=== PATIENT | female | born 1950 | race Caucasian/White ===

== ENCOUNTER 2016-11-02 13:08 | Observation (INO) | payer OTHER ==
[2016-11-02] MEDS ORDERED: NS 1,000 ML IV ONE (13:25)
--- NOTE | 2016-11-02 13:25 | EDPHY ---
H & P Stated Complaint: 2 episodes over last 2 days of aphasia /blurrred vision/now resolved Time Seen by Provider: 11/02/16 13:19 HPI/ROS: CHIEF COMPLAINT: 2 episodes of expressive aphasia, blurry vision HISTORY OF PRESENT ILLNESS: The patient is referred to the ED after she experienced 2 episodes of an expressive aphasia over the past 72 hours. The patient reports she has been asymptomatic for the past 24 hours. The duration of her symptoms was approximately 5 minutes. In addition to the a facial she experienced some generalized complaints of blurry vision. She had no history of headache with the symptoms. The patient denies any peripheral numbness or weakness. The patient has no prior history of stroke or TIA. The patient has no history of hypertension, hyperlipidemia, arrhythmia or cardiac disease. The patient denies additional symptoms of infection. She specifically denies fever , cough or dysuria. REVIEW OF SYSTEMS: A comprehensive 10 point review of systems is otherwise negative aside from elements mentioned in the history of present illness. Source: Patient - Personal History Current Tetanus/Diphtheria Vaccine: Yes Tetanus Vaccine Date: >10 YRS - Medical/Surgical History Hx Asthma: No Hx Chronic Respiratory Disease: No Hx Diabetes: No Hx Cardiac Disease: No Hx Renal Disease: No Hx Cirrhosis: No Hx Alcoholism: No Hx HIV/AIDS: No Hx Splenectomy or Spleen Trauma: No Other PMH: denies - Social History Smoking Status: Never smoked - Physical Exam Exam: General Appearance: Alert, no distress Eyes: Pupils equal and round no pallor or injection ENT, Mouth: Mucous membranes moist Respiratory: There are no retractions, lungs are clear to auscultation Cardiovascular: Regular rate and rhythm Gastrointestinal: Abdomen is soft and nontender, no masses, bowel sounds normal Neurological: A&O, normal motor function, normal sensory exam, normal cranial nerves Skin: Warm and dry, no rashes Musculoskeletal: Neck is supple nontender Extremities: symmetrical, full range of motion Constitutional: Initial Vital Signs Temperature (C) 36.7 C 11/02/16 13:14 Heart Rate 60 11/02/16 13:14 Respiratory Rate 16 11/02/16 13:14 Blood Pressure 122/73 H 11/02/16 13:14 O2 Sat (%) 97 11/02/16 13:14 O2 Delivery Mode Room Air Allergies/Adverse Reactions: Penicillins Allergy (Verified 11/02/16 16:47) SWELLING,ITCHING Home Medications: Medication Instructions Recorded NK [No Known Home Meds] 11/02/16 Medical Decision Making - Diagnostics EKG Interpretation: EKG: Complete interpretation has been separately recorded in the [facility] archive. Summary impression: Sinus rhythm, rate 57 Imaging: MRI of the Brain (Without Contrast) November 02, 2016 Clinical Indication: Rule out CVA. Difficulty with word finding. Blurred vision. Findings: Moderate volume periventricular white matter microvascular ischemic gliosis is present bilaterally, largest lesion present in the subcortical left parietal white matter. No evidence of acute cortical ischemia on diffusion-weighted imaging. No evidence of mass or mass effect or intracranial hemorrhage. Craniocervical junction appears unremarkable. Skull base appears normal. Carotid and vertebrobasilar flow voids are present. Impression: Moderate volume white matter microvascular ischemic gliosis, without acute cortical ischemia. CT Neck CT Angiography of the Neck (With Contrast) November 02, 2016 Clinical Indications: Expressive aphasia. TIA symptoms. Findings: The right-sided aortic arch is high riding in the superior mediastinum resulting in mild buckling of the arch and origin of the right common carotid artery. The buckling and minimal compression of the origin of the right common carotid artery between the aortic arch and posterior head of the right clavicle results in 40 to 50% narrowing. The four-vessel neck anatomy is otherwise normal and widely patent. Minimal calcified plaque along the posterior wall of the left carotid bulb and trace calcified along the medial right carotid bulb results in less than 10% narrowing bilaterally. No ulcerated plaque or flow-limiting stenosis of the carotid bulb or internal carotid arteries. Bilateral vertebral arteries are widely patent. Impressions 1. Right-sided aortic arch. 2. Mild to moderate (40 to 50% stenosis) origin of the right common carotid artery due to minimal compression and kinking at its origin. 2. Trace bilateral carotid plaque. No flow-limiting stenosis secondary to plaque. ED Course/Re-evaluation: The patient presents to the ED after several discrete episodes of acute neurologic complaints including a facial and vision changes. The patient is asymptomatic in the emergency department with an NIH stroke scale of 0. She is not a candidate for thrombolytics therapy as she is entirely asymptomatic. Workup was undertaken for evaluation of possible TIA. This included a MRI of the brain which demonstrates microvascular disease without evidence of an acute stroke. She had a CT angiogram of the brain which was unremarkable. CT angiogram of the neck demonstrated no evidence of stenosis or dissection. There appeared to a "kink" of the origin of the left ICA near the aortic arch. The patient will be admitted to the hospital for further observation workup of TIA this evening. Consultation was made with Dr. Hanny Zhao who will admit the patient. Differential Diagnosis: Differential diagnosis considered includes stroke, TIA, metabolic abnormality, migraine variant, seizure - Data Points Laboratory Results: Laboratory Results 11/02/16 13:55 11/02/16 13:55 11/02/16 13:55 WBC 6.04 10^3/uL (3.80-9.50) RBC 4.83 10^6/uL (4.18-5.33) Hgb 14.5 g/dL (12.6-16.3) Hct 42.9 % (38.0-47.0) MCV 88.8 fL (81.5-99.8) MCH 30.0 pg (27.9-34.1) MCHC 33.8 g/dL (32.4-36.7) RDW 13.9 % (11.5-15.2) Plt Count 200 10^3/uL (150-400) MPV 11.2 fL (8.7-11.7) Neut % (Auto) 56.8 % (39.3-74.2) Lymph % (Auto) 33.6 % (15.0-45.0) [place] % (Auto) 6.1 % (4.5-13.0) Eos % (Auto) 2.6 % (0.6-7.6) Baso % (Auto) 0.7 % (0.3-1.7) Nucleat RBC Rel Count 0.0 % (0.0-0.2) Absolute Neuts (auto) 3.43 10^3/uL (1.70-6.50) Absolute Lymphs (auto) 2.03 10^3/uL (1.00-3.00) Absolute Monos (auto) 0.37 10^3/uL (0.30-0.80) Absolute Eos (auto) 0.16 10^3/uL (0.03-0.40) Absolute Basos (auto) 0.04 10^3/uL (0.02-0.10) Absolute Nucleated RBC 0.00 10^3/uL (0-0.01) Immature Gran % 0.2 % (0.0-1.1) Immature Gran # 0.01 10^3/uL (0.00-0.10) PT 12.3 SEC (12.0-15.0) INR 0.92 (0.83-1.16) Sodium 142 mEq/L (134-144) Potassium 4.0 mEq/L (3.5-5.2) Chloride 103 mEq/L (97-110) Carbon Dioxide 27 mEq/l (22-31) Anion Gap 12 mEq/L (8-16) BUN 9 mg/dL (7-23) Creatinine 0.7 mg/dL (0.6-1.0) Estimated GFR > 60 Glucose 89 mg/dL (70-100) Calcium 9.3 mg/dL (8.5-10.4) Medications Given: Discontinued Medications Sodium Chloride (Ns) 1,000 mls @ 0 mls/hr IV ONCE ONE PRN Reason: Wide Open Stop: 11/02/16 13:26 Last Admin: 11/02/16 14:07 Dose: 1,000 mls Departure - Departure Disposition: [facility] Inpatient Acute Clinical Impression: TIA (transient ischemic attack) Condition: Good
[2016-11-02 14:02] LABS: % IMMATURE GRANULYOCYTES 0.2 % (0.0-1.1); ABSOLUTE IMMATURE GRANULOCYTES 0.01 10^3/uL (0.00-0.10); ADD DIFF? NO; ADD MORPH? NO; ADD SCAN? NO; ATYPICAL LYMPHOCYTE FLAG 10 (0-99); FRAGMENT RBC FLAG 0 (0-99); HEMATOCRIT 42.9 % (38.0-47.0); HEMOGLOBIN 14.5 g/dL (12.6-16.3); LEFT SHIFT FLG 0 (0-99); LIPEMIA HEMOLYSIS FLAG 90 (0-99); MEAN CELL HEMOGLOBIN CONCENTR. 33.8 g/dL (32.4-36.7); MEAN CELL VOLUME 88.8 fL (81.5-99.8); MEAN PLATELET VOLUME 11.2 fL (8.7-11.7); PLATELET CLUMPS FLAG 10 (0-99); PLATELET COUNT 200 10^3/uL (150-400); RED BLOOD CELL COUNT 4.83 10^6/uL (4.18-5.33); RED CELL DISTRIBUTION WIDTH 13.9 % (11.5-15.2)
--- NOTE | 2016-11-02 14:25 | CPEKG ---
Heart Rate: 57 RR Interval: 1053 P-R Interval: 180 QRSD Interval: 76 QT Interval: 420 QTC Interval: 409 P [place]: 7 QRS [place]: 29 T Wave [place]: 26 EKG Severity - NORMAL ECG - EKG Impression: SINUS RHYTHM Electronically Signed By: Angella Shrestha 02-Nov-2016 15:04:33
[2016-11-02 14:27] LABS: ANION GAP 12 mEq/L (8-16); CALCIUM 9.3 mg/dL (8.5-10.4); CARBON DIOXIDE 27 mEq/l (22-31); CHLORIDE 103 mEq/L (97-110); CREATININE 0.7 mg/dL (0.6-1.0); GLOMERULAR FILTRATION RATE > 60; GLUCOSE 89 mg/dL (70-100); SODIUM 142 mEq/L (134-144)
[2016-11-02 14:30] LABS: INR 0.92 (0.83-1.16); PROTIME(PATIENT) 12.3 SEC (12.0-15.0)
[2016-11-02] MEDS ORDERED: IOPAMIDOL (ISOVUE 370) 75 ML BTL IV ONE (15:38)
--- NOTE | 2016-11-02 16:23 | MR ---
MRI of the Brain (Without Contrast) November 02, 2016 Clinical Indication: Rule out CVA. Difficulty with word finding. Blurred vision. Technique: T1-weighted images were acquired axially and sagittally from the foramen magnum to the ve rtex. Axial FLAIR, fast T2-weighted, and diffusion-weighted axial images were obtained without contr ast. Findings: Moderate volume periventricular white matter microvascular ischemic gliosis is present sole aterally, largest lesion present in the subcortical left parietal white matter. No evidence of acute cortical ischemia on diffusion-weighted imaging. No evidence of mass or mass effect or intracranial h emorrhage. Craniocervical junction appears unremarkable. Skull base appears normal. Carotid and verte brobasilar flow voids are present. Impression: Moderate volume white matter microvascular ischemic gliosis, without acute cortical isc hemia. Results called to Dr. Santy Prakash at 1600 hours.
--- NOTE | 2016-11-02 16:44 | CT ---
CT Angiography of the Head November 02, 2016 Clinical Indications: Expressive aphasia. TIA symptoms. R29.818 Neurological changes strongly suggest ing intracerebral aneurysm. Technique: During automated power injection of 74 mL of Isovue-370, thinly collimated spiral (volume tric) multidetector helical imaging was performed through the head. Independent three-dimensional knowNormal workstation was used for additional manipulations of images by the radiologist. Dose reduction techniques were utilized. Findings: The anterior and posterior circulation is widely patent. No occlusion or filling defect. N o intracranial aneurysm, vascular malformation, or enhancing intracranial lesion. The intracranial ve nous system is normally opacified. Impression: 1. Normal intracranial arterial circulation. No evidence of embolic disease or occlusion. 2. Patent sagittal sinus. Comment: Results were discussed with Dr. Santy Prakash at 4:25 p.m. November 02, 2016.
--- NOTE | 2016-11-02 17:18 | CT ---
CT Neck CT Angiography of the Neck (With Contrast) November 02, 2016 Clinical Indications: Expressive aphasia. TIA symptoms. Technique: During IV administration of 74 mL of Isovue-370 intravenously, helical multidetector data acquisition was obtained from the upper thorax cephalad through the skull base. The thinly collimat ed data were manipulated in multiple projections on the 3D computer workstation by the radiologist. Dose reduction techniques were utilized. Findings: The right-sided aortic arch is high riding in the superior mediastinum resulting in mild b uckling of the arch and origin of the right common carotid artery. The buckling and minimal compress ion of the origin of the right common carotid artery between the aortic arch and posterior head of th e right clavicle results in 40 to 50% narrowing. The four-vessel neck anatomy is otherwise normal an d widely patent. Minimal calcified plaque along the posterior wall of the left carotid bulb and trac e calcified along the medial right carotid bulb results in less than 10% narrowing bilaterally. No u lcerated plaque or flow-limiting stenosis of the carotid bulb or internal carotid arteries. Bilatera l vertebral arteries are widely patent. Impressions 1. Right-sided aortic arch. 2. Mild to moderate (40 to 50% stenosis) origin of the right common carotid artery due to minimal co mpression and kinking at its origin. 2. Trace bilateral carotid plaque. No flow-limiting stenosis secondary to plaque. Note: All stenoses are calculated using NASCET Criteria. Comment: Results were called to Dr. Santy Prakash at 4:25 p.m. on November 02, 2016.
[2016-11-02 17:43] LABS: COLOR PALE YELLOW; LEUKOCYTE ESTERASE,URINE TRACE (NEGATIVE); NITRITE,URINE NEGATIVE (NEGATIVE)
--- NOTE | 2016-11-02 17:45 | PDEACUHP ---
History and Physical - Chief Complaint Expressive aphasia and blurred vision >24 hrs ago - History of Present Illness 66 yo otherwise healthy female who presents to the ED reports 2 episodes of expressive aphasia yesterday, both of which lasted approximately 5 minutes. One of the episodes occurred while she was driving. The speech / word finding difficulty resolved, but then she experienced ~30 minutes of blurred vision. No headache, N/V. No fevers or chills. No CP, SOB or palpitations. In the ED, she had a brain MRI which was negative for acute CVA, but did reveal chronic microvascular disease. CTA head and neck were negative for large vessel occlusion, aneurysm, or dissection. She is admitted to the hospital for further management. History Information - Allergies/Home Medication List Allergies/Adverse Reactions: Penicillins Allergy (Verified 11/02/16 16:47) SWELLING,ITCHING Home Medications: NK [No Known Home Meds] 11/02/16 [Last Taken Unknown] I have personally reviewed and updated: family history, medical history, social history, surgical history - Past Medical History Additional medical history: Denies any PMHx - Surgical History Reports: no pertinent surgical hx - Family History Positive for: non-pertinent - Social History Smoking Status: Never smoked Alcohol Use: None Drug Use: None (Retired. Vegan. Lives at home independently. . at bedside.) Review of Systems ROS: 10pt was reviewed & negative except for what was stated in HPI & below Physical Exam Temp Pulse Resp BP Pulse Ox 36.6 C 62 17 110/73 94 11/02/16 17:17 11/02/16 17:17 11/02/16 17:17 11/02/16 17:17 11/02/16 17:17 Constitutional: no apparent distress Eyes: PERRL Ears, Nose, Mouth, Throat: moist mucous membranes Cardiovascular: regular rate and rhythym, no murmur, rub, or gallop Respiratory: no respiratory distress, clear to auscultation Gastrointestinal: normoactive bowel sounds, soft, non-tender abdomen Skin: warm Musculoskeletal: full muscle strength Neurologic: AAOx3, CN II-XII Intact, other (No facial droop, pronator drift negative) Psychiatric: interacting appropriately Lab Data & Imaging Review 11/02/16 13:55 11/02/16 13:55 WBC 6.04 10^3/uL (3.80-9.50) 11/02/16 13:55 RBC 4.83 10^6/uL (4.18-5.33) 11/02/16 13:55 Hgb 14.5 g/dL (12.6-16.3) 11/02/16 13:55 Hct 42.9 % (38.0-47.0) 11/02/16 13:55 MCV 88.8 fL (81.5-99.8) 11/02/16 13:55 MCH 30.0 pg (27.9-34.1) 11/02/16 13:55 MCHC 33.8 g/dL (32.4-36.7) 11/02/16 13:55 RDW 13.9 % (11.5-15.2) 11/02/16 13:55 Plt Count 200 10^3/uL (150-400) 11/02/16 13:55 MPV 11.2 fL (8.7-11.7) 11/02/16 13:55 Neut % (Auto) 56.8 % (39.3-74.2) 11/02/16 13:55 Lymph % (Auto) 33.6 % (15.0-45.0) 11/02/16 13:55 [place] % (Auto) 6.1 % (4.5-13.0) 11/02/16 13:55 Eos % (Auto) 2.6 % (0.6-7.6) 11/02/16 13:55 Baso % (Auto) 0.7 % (0.3-1.7) 11/02/16 13: Nucleat RBC Rel Count 0.0 % (0.0-0.2) 11/02/16 13:55 Absolute Neuts (auto) 3.43 10^3/uL (1.70-6.50) 11/02/16 13:55 Absolute Lymphs (auto) 2.03 10^3/uL (1.00-3.00) 11/02/16 13:55 Absolute Monos (auto) 0.37 10^3/uL (0.30-0.80) 11/02/16 13:55 Absolute Eos (auto) 0.16 10^3/uL (0.03-0.40) 11/02/16 13:55 Absolute Basos (auto) 0.04 10^3/uL (0.02-0.10) 11/02/16 13:55 Absolute Nucleated RBC 0.00 10^3/uL (0-0.01) 11/02/16 13:55 Immature Gran % 0.2 % (0.0-1.1) 11/02/16 13:55 Immature Gran # 0.01 10^3/uL (0.00-0.10) 11/02/16 13:55 PT 12.3 SEC (12.0-15.0) 11/02/16 13:55 INR 0.92 (0.83-1.16) 11/02/16 13:55 Sodium 142 mEq/L (134-144) 11/02/16 13:55 Potassium 4.0 mEq/L (3.5-5.2) 11/02/16 13:55 Chloride 103 mEq/L (97-110) 11/02/16 13:55 Carbon Dioxide 27 mEq/l (22-31) 11/02/16 13:55 Anion Gap 12 mEq/L (8-16) 11/02/16 13:55 BUN 9 mg/dL (7-23) 11/02/16 13:55 Creatinine 0.7 mg/dL (0.6-1.0) 11/02/16 13:55 Estimated GFR > 60 11/02/16 13:55 Glucose 89 mg/dL (70-100) 11/02/16 13:55 Calcium 9.3 mg/dL (8.5-10.4) 11/02/16 13:55 Assessment & Plan Assessment: TIA (transient ischemic attack) (Acute) - Suspect cortical TIA's, though will check echo to r/o embolic source. Not hypertensive. Start ASA, statin. Monitor on telemetry. Neurology consult for the morning. Full code Dispo - obs, EACU
[2016-11-02] MEDS: ATORVASTATIN CALCIUM 20 MG TAB PO SCH (19:19)
[2016-11-03 04:23] LABS: CHOLESTEROL 169 mg/dL (140-220); CHOLESTEROL/HDL RATIO 2.49 RATIO (1.00-4.44); HIGH DENSITY LIPOPROTEIN 68 mg/dL (40-85); LDL/HDL RATIO 1.34 RATIO (1.00-3.22); LOW DENSITY LIPOPROTEIN 91 mg/dL (80-100); NON-HIGH DENSITY LIPOPROTEIN 101 mg/dL (90-129); TRIGLYCERIDE 52 mg/dL (35-135); VERY LOW DENSITY LIPOPROTEINS 10 mg/dL (8-25)
[2016-11-03] MEDS ORDERED: ASPIRIN 81 MG CHEWABLE TAB PO SCH (09:00)
--- NOTE | 2016-11-03 09:16 | ECHO ---
[id number] + + [address] : : [place] [address] : : [phone] + + Adult Echocardiographic Report + --------+ :Name: DREAD NYdavid Date: 11/03/2016 07:23 AM : : Hospital Admission Number: [id number] Locat ion: 140: :: 1950 Gender: Female Height: 66 in : :Age: 66 yrs Race: WH Weight: 140 l b : :Reason For Study: TIA : : BSA: 1.7 mete rs2 : + --------+ MMode/2D Measurements & Calculations IVSd: 0.88 cm LVIDd: 4.4 cm FS: 49.7 % Ao root diam: LVPWd: 0.77 cm LVIDs: 2.2 cm EDV(Teich): 3.4 cm 87.7 ml LA dimension: ESV(Teich): 4.0 cm 16.5 ml EF(Teich): 81.2 % LVLd ap4: 7.0 cm SV(MOD-sp4): EDV(MOD-sp4): 30.0 ml 46.0 ml LVLs ap4: 5.7 cm ESV(MOD-sp4): 16.0 ml EF(MOD-sp4): 65.2 % Normal Measurement Values: + + :LVIDd (3.5-5.7cm) IVSd (0.6-1.1cm) LVPWd (0.6-1.1cm) Aortic Root (2.0-3.7cm)Left Atrium (1.5-4.0cm): :LV Vol(d) (76-115ml) LV Vol(s) (29-48ml) Ejec Fraction (50-65%)PV Jose (0.6- 1.2m/s) TV Jose (0.4-1.0m/s) : :MV E Jose (0.8-1.0m/s)MV A Jose (0.3-1.0m/s)LVOT Jose (0.7-1.2m/s) Asc Ao Jose ( 0.9-1.8m/s) : + + Doppler Measurements & Calculations MV E max jose: 82.9 cm/sec Ao V2 max: 107.2 cm/sec MV A max jose: 69.6 cm/sec Ao max P.6 mmHg MV E/A: 1.2 Left Ventricle The left ventricle is normal in size and function. There is normal left ventricular wall thickness. Left ventricular systolic function is normal. Ejection Fraction = 65-70%. No regional wall motion abnormalities noted. Right Ventricle The right ventricle is normal in size and function. Atria The left atrial size is normal. Right atrial size is normal. The interatrial septum is intact with no evidence for an atrial septal defect. Mitral Valve The mitral valve is normal in structure and function. There is no evidence of mitral valve prolapse. There is no mitral valve stenosis. There is trace mitral regurgitation. Tricuspid Valve Normal tricuspid valve. There is trace tricuspid regurgitation. Aortic Valve The aortic valve is trileaflet. The aortic valve opens well. There is no aortic stenosis. There is no aortic insufficiency. Pulmonic Valve The pulmonic valve is normal in structure and function. There is no pulmonic valvular regurgitation. Great Vessels The aortic root is normal size. Pericardium/Pleural There is no pericardial effusion. Conclusion A complete two-dimensional transthoracic echocardiogram was performed (2D, M-mode, Doppler and color flow Doppler). There is no obvious source of embolus identified. If one is highly clinically suspected, then transesophageal echocardiography should be considered. The left ventricle is normal in size and function. Left ventricular systolic function is normal. Ejection Fraction = 65-70%. There is trace mitral regurgitation. There is trace tricuspid regurgitation. Final Reading Physician: Blanca Bal signed on 11/03/2016 09:15 AM Ordering Physician: Hanny Zhao Performed By: Emma Liz, ARNULFOCS
[2016-11-03] MEDS: ATORVASTATIN CALCIUM 20 MG TAB PO SCH (10:46)
[2016-11-03 11:32] VITALS: O2SAT 97
--- NOTE | 2016-11-03 12:25 | PDCONSULT ---
[facility] Note: HOSPITAL NEUROLOGY CONSULT REQUESTING: Hanny Zhao DO REASON: possible TIA HPI: This is a 58-year-old right-handed woman with no significant past medical history who presents for evaluation of possible TIA. Patient presented to our emergency department on November 02. She had concerns given difficulty thinking of specific words for sentences. Three days prior to her arrival, she was out with some friends and during her conversation she had about a 5 minutes episode where she states she was trying to think of sentences, but could not think of some of the right words, so had a substitute words. Her speech was fluent and coherent. Her friends had not made any comment about any difficulty with her speech or language expression. The day prior to her arrival, she was driving in her car and she states she noticed the right eye started to get blurry in the lower half of her vision. She states this may have spread to involve both eyes. There is no vision loss or double vision, just blurring. Later that day, she was speaking to a group and had the same difficulty thinking of words for specific sentences she wanted to use, but no difficulty with language expression or fluency. The group she was speaking with did not note any difficulty with her language or speech. There was no indication of any headache, dysarthria, expressive her fluent language difficulty, facial drooping, extremity weakness, sensory phenomenon, dizziness, gait disturbance. She has not had any recent illnesses. She has no prior history of conventional vascular risk factors. No prior history of stroke or TIA. No history of migraine. No history of anxiety. She had no chest pain, palpitations or shortness of breath during these episodes. ROS: As per the HPI, otherwise a complete 12 point ROS was performed and is negative ALLERGIES AND MEDS: As recorded in the EMR - reviewed and reconciled PFSH: As per the intake H&P by Dr. Zhao from 11/02/16 EXAM: GEN: WDWN laying in NAD HEENT: NCAT, sclera anicteric, conjunctiva not injected, MMM, oropharynx clear, no scalp tenderness NECK: supple, nontender, no meningismus CV: RRR s1 s2 wo m/r/c/g. Carotid pulses 2+ wo bruit NEURO: MS: awake, alert, oriented to all spheres. Speech nondysarthric. No language disturbance. Follows commands. Attends to both sides. Recent/remote memory grossly intact. Mood a bit anxious. Good fund of knowledge. CN: pupils 3mm round and reactive. Fundi with sharp discs. VFF. Primary gaze centered. Full ocular motility. Facial sensation preserved. Face symmetric. Palatoglossal movements intact. Shoulder shrug and head turn strong. MOTOR: normal bulk/tone. No adventitial movements. Full power throughout. SENSORY: intact to all modalities throughout. No extinction. COORD: no ataxia FN/HS. [place] preserved. Romberg neg. REFLEX: plantars down. No clonus. DTRS trace. GAIT: rises unassisted. Narrow base. Intact stride length/heel strike/toe lift /arm swing. Turns with 2 steps. Able to tandem without difficulty. DATA: Labs reviewed in EMR CTA head - patent intracranial vessels CTA neck - 40-50% stenosis of the right carotid origin from vascular kinking, mild atherosclerotic plaque in the BICAs, nothing hemodynamically significant MRI brain wo - some mild scattered subcortical chronic microvascular ischemic changes, no acute ischemia LDL 91 TTE - preserved EF, no mass/thrombus IMPRESSION AND RECOMMENDATIONS: // SPELLS OF LANGUAGE DISTURBANCE // SPELL OF BLURRED VISION Patient presents for evaluation of 2 spells of difficulty thinking of the words she wanted to say without any objective evidence of dysarthria or expressive/ fluent aphasia. She also had a self-limiting episode of blurred vision in the right eye that may have spread to involve both eyes. Given the lack of any objective speech or language disturbance, I have a lower suspicion for a vascular event such as a TIA. This may be something more along the lines of cognitive inefficiency or new onset anxiety. Migrainous phenomenon considered, but symptoms short-lasting and no prior history of migraine. We will treat these though as if they were TIAs. Given the possibility of language disturbance, this could represent focal cortical embolization. She will need to be investigated as an outpatient for paroxysmal arrhythmia with a 30 day Holter monitor. She has otherwise had a complete TIA workup. - cont ASA 81mg daily - goal normotension - statin for LDL goal < 70 - goal normoglycemia with A1c < 6.5 - can be checked as outpatient - 30d Holter monitor as outpatient - ophthalmologic exam as outpatient for monocular (? binocular) blurred vision - check B12 and TSH as outpatient (cognitive inefficiency labs) - advised to routinely exercise and adhere to a Mediterranean style diet - stroke education provided, including activating EMS for abrupt onset neurologic deficits - followup with PCP for continued surveillance and optimization of vascular risk factors - OK for discharge from neurologic perspective
[2016-11-03 13:32] VITALS: BP 120/78; PULSE 68; RESP 14; TEMP 97.5
--- NOTE | 2016-11-03 13:42 | GDS ---
[f rep st] DISCHARGE SUMMARY KNOWN ACUTE DIAGNOSES ON THIS ADMISSION: 1. Disturbances of language and blurred vision of possible neurologic origin. No clear evidence of a transient ischemic attack. 2. Hypercholesterolemia. CONSULTATION: Neurology. 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 The MRA of the head and neck showed a 40% to 50% stenosis of the right common carotid artery due to minimal compression and kinkin g at its origin. Echocardiogram was normal, showing no source of emboli and a normal ejection fraction. HOSPITAL COURSE: This 66-year-old female presented with disturbances of language and vision. The MR A and MRI of the brain, head and neck showed no definitive source of infarct or embolization. Overni ght monitoring showed no cardiac dysrhythmia. Neurology consultation was unable to confirm a true an d complete finding of a TIA, although she will be treated as such. She remained stable and had compl ete resolution of her presenting neurologic events. DISCHARGE MEDICATIONS: ASA 81 mg a day, Lipitor 20 mg daily. PLAN: The patient will have final laboratories of TSH and a B12. She has been ordered to have a 30- day Holter monitor through [facility], and she will contact Dr. Matias Ugarte in the [facility] office for this. Her followup will be with Dr. Chloe Marquez. She has been informed of the fact that w e do not have a definitive finding, but are going to treat it as though it is a TIA. I have also exp lained to her the possibility of cardiac rhythm disturbance. She is understanding and will be obtain ing the heart monitor. Followup will be with Dr. Chloe Marquez and [facility]. Time this discharge required is 45 minutes, greater than 50% to anger control counselor and coordinate care. /[id number]/MODL
== END 2016-11-03 13:40 | disposition home or self-care (01) ==
LOC: F1N 17:45
PROVIDERS: ADMIT Hospitalist; ATTEND Internal Medicine Pulmonary Disease
DX: R47.89 Other speech disturbances (principal); H53.8 Other visual disturbances; E78.00 Pure hypercholesterolemia, unspecified
CPT/HCPCS: 70496; 70498; 70551; 93005; 93306; 96360; 99285; G0378; 82607-90

== ENCOUNTER → 2017-03-08 | Outpatient (CLI) | payer OTHER | LOC: FIMAGING 11:54 | PROVIDERS: ATTEND Internal Medicine | DX: R19.00 Intra-abdominal and pelvic swelling, mass and lump, unspecified site (principal) ==

== ENCOUNTER → 2017-09-05 | Outpatient (CLI) | payer OTHER | LOC: BHFA 14:00 | PROVIDERS: ATTEND Internal Medicine Cardiovascular Disease | DX: G45.9 Transient cerebral ischemic attack, unspecified (principal) ==

== ENCOUNTER → 2017-10-09 | Outpatient (CLI) | payer OTHER | LOC: BMCIMAGING 14:19 | PROVIDERS: ATTEND Internal Medicine | DX: Z12.31 Encounter for screening mammogram for malignant neoplasm of breast (principal) | CPT/HCPCS: G0202 ==

== ENCOUNTER → 2018-07-05 | Outpatient (CLI) | payer OTHER | LOC: MERGE 16:41 → BMCIMAGING 16:41 | PROVIDERS: ATTEND Family Medicine | DX: M25.562 Pain in left knee (principal); Z96.652 Presence of left artificial knee joint ==

== ENCOUNTER → 2018-09-17 | Outpatient (CLI) | payer OTHER | LOC: BMCIMAGING 13:17 | PROVIDERS: ATTEND Internal Medicine | DX: R05 Cough (principal) ==

== ENCOUNTER → 2018-10-20 | Outpatient (CLI) | payer OTHER | LOC: BMCIMAGING 13:18 | PROVIDERS: ATTEND Internal Medicine | DX: Z12.31 Encounter for screening mammogram for malignant neoplasm of breast (principal) ==

== ENCOUNTER → 2018-11-27 | Outpatient (CLI) | payer OTHER | LOC: BMCIMAGING 14:04 | PROVIDERS: ATTEND Internal Medicine | DX: Z13.820 Encounter for screening for osteoporosis (principal); M85.89 Other specified disorders of bone density and structure, multiple sites; Z78.0 Asymptomatic menopausal state ==